=== PATIENT | female | born 1955 | race Hispanic/Latino ===

== ENCOUNTER 2020-04-01 09:18 | Observation (INO) | payer OTHER ==
--- NOTE | 2020-04-01 10:29 | CT ---
CT BRAIN WITHOUT CONTRAST: Date: 04/01/2020 HISTORY: Headache. Slurred speech. COMPARISON: 07/21/2012. FINDINGS: No evidence of acute infarct, hemorrhage, midline shift, or abnormal extra-axial fluid collections ar e seen. The ventricular size is normal and the basilar cisterns are patent. The bony calvarium is int act. The visualized paranasal sinuses and mastoid air cells are well aerated. IMPRESSION: No CT evidence of acute intracranial process. POS: SANDR[facility]
[2020-04-01 10:33] LABS: Hemoglobin 11.9 g/dL (12.0-16.0); Mean Corpuscular HGB CONC 34.5 g/dL (32.0-36.0); Mean Corpuscular Hemoglobin 30.3 pg (27.0-31.0); Mean Corpuscular Volume 87.9 fL (78.0-98.0); Platelet Count 241 thou/uL (130-400); RBC Distribution Width 12.9 % (11.5-14.5); Red Blood Cell (RBC) Count 3.93 mill/uL (4.20-5.40); White Blood Cell (WBC) Count 7.5 thou/uL (4.8-10.8)
[2020-04-01 10:56] LABS: ALT (SGPT) 40 U/L (8-55); AST (SGOT) 52 U/L (5-34); Albumin 3.8 g/dL (3.4-4.8); Alkaline Phosphatase 135 U/L (40-110); Anion Gap 12 mmol/L (10-20); BUN (Urea Nitrogen) 18 mg/dL (9.8-20.1); Bilirubin, Total 0.7 mg/dL (0.2-1.2); Calc. Creatinine Clearance 0 mL/min (70-130); Calcium 8.8 mg/dL (7.8-10.44); Carbon Dioxide 25 mmol/L (23-31); Chloride 97 mmol/L (98-107); Estimated GFR-MDRD 44; Globulin 3.3 g/dL (2.4-3.5); Glucose 96 mg/dL (80-115); Protein, Total 7.1 g/dL (6.0-8.3); Sodium 131 mmol/L (136-145)
[2020-04-01 11:01] LABS: Band 5 % (5-11); Eosinophils 3 % (0-10); Lymphocytes 33 % (21-51); MDiff Complete? YES; Monocytes 16 % (0-10); Neutrophil 43 % (42-75); Platelet Morphology Comment Appears Adequate; Polychromasia SLIGHT = 2-3 cells (100X) (0-2/hpf)
[2020-04-01 11:22] LABS: Bacteria/HPF 4+ HPF (None Seen); Bilirubin Negative (Negative); Blood, Urine 2+ (Negative); Clarity Turbid (Clear); Glucose, Urine (Dipstick) Normal (Negative); Ketone, Urine Negative (Negative); Leukocyte 500 Leu/uL (Negative); Nitrite 2+ (Negative); Protein, Urine (Dipstick) 20 mg/dL (Neg-Trace); Specific Gravity, Urine 1.012 (1.002-1.036); Squamous Epithelial 0-3 HPF (0-3); WBC/HPF Greater than 50 HPF (0-3); pH, Urine 5.5 (5.0-9.0)
[2020-04-01] MEDS ORDERED: Potassium Chloride 20 MEQ TAB ONE (12:05)
[2020-04-01] MEDS ORDERED: cefTRIAXone\\ROCEPHIN 1 GM VIAL ONE (12:05)
[2020-04-01] MEDS ORDERED: Ondansetron PF 4 MG/2 ML Vial IVP PRN (14:49)
[2020-04-01] MEDS ORDERED: HYDROcodone/Acetaminophen 5/325 mg Tablet PO PRN ×2 (14:49)
[2020-04-01] MEDS ORDERED: Ondansetron ODT 4 MG TAB PO PRN (14:49)
[2020-04-01] MEDS ORDERED: Acetaminophen 325 MG TAB PO PRN (14:49)
--- NOTE | 2020-04-01 15:25 | MRI ---
MRI BRAIN NONCONTRAST: DATE: 04/01/2020 HISTORY: 64 year old female with TIA: Dysarthria FINDINGS: There is no obstructive hydrocephalus. There is no midline shift or any other evidence of mass effect . There is no extra-axial fluid collection. There are mild chronic ischemic white matter changes due to microvascular atherosclerosis. There is otherwise no major intra-axial signal abnormality, rec ent hemorrhage, or restricted diffusion. IMPRESSION: 1) mild chronic ischemic white matter changes. 2) otherwise negative
--- NOTE | 2020-04-01 15:54 | HP ---
PRIMARY CARE PHYSICIAN: Dr. Olivo with [facility]. CHIEF COMPLAINT: Headache. HISTORY OF PRESENT ILLNESS: The patient is a 64-year-old female with past medical history significant for hyperlipidemia, hypertension, and depression. She presents to the ER today for a headache that started 3 days ago. She states that this headache did not feel like her normal migraine that she would get 10 years ago. It felt more like a band of tightness around her head. It began about 6:00 a.m. that morning that started in her occipital area and travelled around the left frontal region. She did proceed to go to work that day, and during her work that day, she started to slur her words, have blurry vision, and began to walk sideways. She was able to finish her shift, but that night when she got home, she did fall 3 times. She states she did not take anything for pain relief, although the ER has a note stating that she attempted [place] and tramadol. She states that around 10:00 p.m. that evening, it went away on its own. She does still say she has a little bit of blurry vision, although it was much improved since Wednesday and also she states that she does feel like her speech is still slurred, although that also was much improved since Wednesday. She was feeling nauseated on that day, but denied any vomiting. She denied any chest pain, shortness of breath, fever, or sick contacts. The patient also claims that she has been very sleepy and falling asleep even mid sentence. For the past 6 months, she states that she is having a hard time falling asleep at night , but then is extremely sleepy throughout the day. She denies any snoring or gasping awake at night. The patient states she has not had any sick contacts, although she did attend a [place] yesterday, where multiple family members were there that had previously tested positive for COVID-19. She states that they all were wearing masks and attempted to practice social distancing. Today, in the ER, they completed lab work, urinalysis, brain CT, and EKG. PAST MEDICAL HISTORY: Hypertension, hyperlipidemia, and depression. PAST SURGICAL HISTORY: Hysterectomy, appendectomy, shoulder and neck surgery, and cholecystectomy. ALLERGIES: PENICILLIN CAUSES HIVES. MEDICATIONS: 1. Citalopram 40 mg once daily. 2. Lisinopril 40 mg daily. 3. Hydrocodone 5 mg/325 mg as needed. SOCIAL HISTORY: The patient lives at home with her . She is a 3- cigarette per day smoker. She denies any alcohol or any drug use. FAMILY HISTORY: Her father from an [place] at age 76. Her brother has had 2 CABGs. REVIEW OF SYSTEMS: All other review of systems negative unless noted in the HPI. PHYSICAL EXAMINATION: VITAL SIGNS: Blood pressure 119/67, pulse 72, respiratory rate 16, temperature 98.5 orally, O2 saturation 99% on room air. CONSTITUTIONAL: Appears in no acute distress. HEENT: Head, atraumatic and normocephalic. Eyes, PERRLA. Extraocular muscles intact. No nystagmus. NECK: Supple. Trachea midline. No lymphadenopathy. RESPIRATORY: Symmetrical chest rise. Clear to auscultation bilaterally. No rhonchi, no wheezes, no rales. CARDIOVASCULAR: Regular rate and rhythm. No rubs, no murmurs, no gallops. ABDOMEN: Bowel sounds normal. No distention. No guarding. No rigidity. EXTREMITIES: No edema. No cyanosis. Posterior tibial and pulses intact. NEUROLOGIC: Cranial nerves 2 through 12 intact. No focal motor deficits. No focal sensory deficits. Cerebellar exam intact. Gait not assessed at this time for the patient's safety. PSYCHIATRIC: Normal affect. Normal behavior. LABORATORY DATA AND IMAGING: Brain CT shows no CT evidence of acute intracranial process. White blood cell 7.5, hemoglobin 11.9, hematocrit 34.5. Sodium 131, potassium 3.0, chloride 97, creatinine 1.24, GFR 44, glucose 96, AST 52, alkaline phosphatase 135. Troponin negative. Urine with 2+ blood and 2+ nitrites, leukocyte esterase 4+ urine bacteria. IMPRESSION AND PLAN: Headache, rule out transient ischemic attack versus complex migraine. The patient states that she has not had a migraine in over 10 years. However, she did claim that she went and saw neurology 6 weeks ago at [facility] for her headaches. We are trying to obtain those medical records from them. Her only complaint at this time is the blurry vision and that she feels like she is walking sideways. ER nurses noted when she walked to the bathroom, she did so without difficulty earlier. The patient also has hypokalemia and this has been replaced at this time. We will continue to monitor and redraw labs in the morning. Patient also presented with an acute kidney injury so we will continue to run IV fluids and recheck her labs in the morning. We will continue IV antibiotics that were started in the ER for her urinary tract infection. The patient does have a history of hypertension. However, since she has been in the ER today, she has been hypotensive. We will continue to monitor her vital signs and hold her blood pressure medicine at this time. The patient wishes to be a full code. Her surrogate decision maker is her daughter, Jeannie Chauhan. The patient has been discussed with Dr. Buck. Job ID: [id number] [id number]
[2020-04-01 16:43] LABS: Troponin I Less than 0.010 ng/mL (< 0.028)
--- NOTE | 2020-04-01 17:30 | CON ---
NEUROLOGY CONSULTATION DATE OF CONSULTATION: 04/01/2020 REASON FOR CONSULTATION: Headache. HISTORY OF PRESENT ILLNESS: Ms. Akiko Chamorro is a 64-year-old female with medical history significant hypertension, hyperlipidemia, and depression, presented with 3-day history of headache. According to the patient, she did not feel not like her normal migraine. It started with a bandlike tightness around her head around 6 a.m. this morning in the occipital area of the neck, then it spread into her left frontal region. She did go to work on Wednesday and worked all day, but she noted started having she did not take any medicine for the pain relief . The headache resolved on it own at 10:00 p.m., but she still had blurred vision. Apparently, the headache started again and she decided to come to the emergency room for further evaluation. She denies any focal weakness or focal paresthesias. She does report nausea, but no vomiting, loss of vision, or loss of consciousness associated with this headache. She did attend the [facility] yesterday with multiple family members who were positive for COVID-19, but they were wearing mask and attempted social distances. In the emergency room, a head CT was done, which was negative for acute intracranial pathology. MRI, urinalysis, and EKG was also unremarkable. REVIEW OF SYSTEMS: All 10 systems were reviewed and were negative except the pertinent positive and negative mentioned in the HPI. PAST MEDICAL HISTORY: 1. Hypertension. 2. Hyperlipidemia. 3. Depression. PAST SURGICAL HISTORY: 1. Hysterectomy. 2. Appendectomy. 3. Shoulder surgery. 4. Neck surgery. 5. Cholecystectomy. ALLERGIES: PENICILLIN CAUSES HIVES. MEDICATIONS: 1. Citalopram 40 mg once daily. 2. Lisinopril 40 mg daily. 3. Hydrocodone 5 mg/325 mg as needed. SOCIAL HISTORY: The patient lives at home with her . She denies alcohol or illegal drug use. She is a 3 cigarettes per day smoker. FAMILY HISTORY: Significant for coronary artery disease and CABG in two of her brothers. PHYSICAL EXAMINATION: VITAL SIGNS: Blood pressure 119/70, pulse 80, respiratory rate 18, and temperature 98.5. CVS: Regular rate and rhythm. CHEST: Clear. ABDOMEN: Soft. NECK: Supple. NEUROLOGIC: Mental status: The patient is alert and oriented to person, place , and time. Cranial nerves 2 through 12 intact. Motor: Muscle tone and bulk are normal. Strength 5/5 bilaterally. Sensory intact. Cerebellar, finger-nose testing intact. Gait not assessed due to the patient's safety reasons. DATA REVIEW: I reviewed the CT scan, which did not reveal any acute intracranial pathology. Urinalysis was positive for UTI. ASSESSMENT AND PLAN: Ms. Akiko Chamorro is consulted for headache, which lasted for 3 days with associated with neurological symptoms like blurred vision, incoordination, and slurred speech. Per patient, headache is currently better after receiving IV antibiotics for urinary tract infection. The MRI of the brain reviewed, which was negative for acute intracranial pathology . This is most likely complicated migraine in the setting of urinary tract infection. Continue on IV antibiotics and medical management per primary team. Continue pain management. Consider gabapentin 100 mg tid for headache control. The patient should follow up with outpatient neurologist for long-term headache management. Plan discussed with the patient and the primary provider, Ramila HUITRON . Thank you for the consult. Job ID: [id number]
[2020-04-01 20:08] LABS: Troponin I Less than 0.010 ng/mL (< 0.028)
[2020-04-01] MEDS: Sodium Chloride 0.9% 1,000 ML IV SCH (20:34)
[2020-04-01] MEDS: Famotidine 20 MG TAB PO SCH (20:34)
[2020-04-01] MEDS ORDERED: Atorvastatin Calcium 40 MG TAB PO SCH (21:00)
[2020-04-01 23:42] VITALS: BMI 20.1
[2020-04-02] MEDS: Sodium Chloride 0.9% 1,000 ML IV SCH ×2 (03:00→07:00)
[2020-04-02 05:02] LABS: #Basophils 0.1 thou/uL (0.0-0.2); #Eosinphils 0.2 thou/uL (0.0-0.7); #Lymphocytes 2.1 thou/uL (1.20-3.40); #Monocytes 0.8 thou/uL (0.11-0.59); #Neutrophils 3.9 thou/uL (1.40-6.50); %Basophils 0.8 % (0.0-1.0); %Eosinophils 2.3 % (0.0-10.0); %Lymphocytes 30.1 % (21.0-51.0); %Monocytes 10.9 % (0.0-10.0); %Neutrophils 55.9 % (42.0-75.0); Hemoglobin 11.2 g/dL (12.0-16.0); Mean Corpuscular HGB CONC 33.5 g/dL (32.0-36.0); Mean Corpuscular Hemoglobin 29.6 pg (27.0-31.0); Mean Corpuscular Volume 88.2 fL (78.0-98.0); Mean Platelet Volume 7.3 fL (7.4-10.4); Platelet Count 254 thou/uL (130-400); RBC Distribution Width 13.2 % (11.5-14.5); Red Blood Cell (RBC) Count 3.79 mill/uL (4.20-5.40); White Blood Cell (WBC) Count 6.9 thou/uL (4.8-10.8)
[2020-04-02 05:22] LABS: Anion Gap 15 mmol/L (10-20); BUN (Urea Nitrogen) 11 mg/dL (9.8-20.1); Calc. Creatinine Clearance 82 mL/min (70-130); Calcium 8.6 mg/dL (7.8-10.44); Carbon Dioxide 20 mmol/L (23-31); Cardiac Risk 5.7 (Less than 4.5); Chloride 111 mmol/L (98-107); Cholesterol 91 mg/dl (< 200 Desired); Estimated GFR-MDRD Greater than 90; Glucose 97 mg/dL (80-115); HDL Cholesterol 16 mg/dL (>60 Neg Risk); LDL Cholesterol, Calculated 55 mg/dL; Potassium 3.7 mmol/L (3.5-5.1); Sodium 142 mmol/L (136-145); Triglycerides 99 mg/dL (Less than 150)
[2020-04-02] MEDS ORDERED: Ibuprofen 600 MG TAB PO PRN (07:59)
[2020-04-02] MEDS ORDERED: Aspirin 81 mg Enteric Coated Tablet PO SCH (09:00)
[2020-04-02] MEDS ORDERED: Enoxaparin Sodium 40 MG/0.4 ML SYRINGE SC SCH (09:00)
[2020-04-02] MEDS: Famotidine 20 MG TAB PO SCH (09:01)
[2020-04-02] MEDS ORDERED: cefTRIAXone\\ROCEPHIN 1 GM in Sodium Chloride 0.9% 100 ML IVPB SCH ×2 (10:00→12:00)
[2020-04-02 11:25] VITALS: BP 119/57; TEMP 97.5
--- NOTE | 2020-04-02 13:47 | DIS ---
DATE OF ADMISSION: 04/01/2020 DATE OF DISCHARGE: 04/02/2020 PRIMARY CARE PROVIDER: She states she has one, but no name. DISCHARGE DISPOSITION: Discharged home. FINAL DIAGNOSES: 1. Headache, resolved. 2. Hypokalemia, resolved. 3. Urinary tract infection. 4. Hypertension. 5. Dyslipidemia. DISCHARGE MEDICINES: Her home medicines plus, 1. Omnicef 300 mg p.o. b.i.d. x7 days. 2. The patient takes Lipitor 40 mg a day. 3. Tramadol 50 mg b.i.d. p.r.n. 4. Escitalopram 20 mg a day. 5. Remeron 30 mg a day. 6. Oxybutynin 10 mg a day. 7. Lisinopril 10 mg a day. 8. Gabapentin 100 mg three times a day. ALLERGIES: PENICILLINS. DIET: Heart healthy. CODE STATUS: Full. PENDING AT TIME OF DISCHARGE: Urine culture and sensitivity reports. HOSPITAL COURSE: The patient admitted with headache. Initial workup including brain CT was unrevealing. Consultation by Dr. Demetria Rojas, Neurology. The patient's headache was associated with some neurological symptoms. Diagnosis of complicated migraine was made with presence of urinary tract infection. She had been put on ceftriaxone. She had no fever, no chills, no elevated white count. She is currently feeling well. Neurological exam is normal. She is being discharged on Omnicef 300 mg p.o. b.i.d. for 7 days. She needs followup with PCP. Dr. Rojas has also recommended follow up with neurologist for long-term headache management. PERTINENT LABORATORY: At discharge, basic metabolic profile is normal. Cardiac enzymes were done which were unremarkable. Cholesterol is 91, LDL is 55. CBC unremarkable. As I said before, culture and sensitivity of urine pending, will be followed up. Job ID: [id number]
[2020-04-02 14:20] LABS: SARS-CoV-2 MS2 Positive; SARS-CoV-2 N Gene Negative; SARS-CoV-2 S Gene Negative; SARS-CoV-2 by NAA Not Detected (NotDetected); SARS-CoV-2 orf1ab Negative
== END 2020-04-02 12:27 | disposition home or self-care (01) ==
LOC: ERS 09:18 → ERHOLD 12:11 → 2SE 19:19
PROVIDERS: ADMIT Internal Medicine; ATTEND Internal Medicine
DX: G43.109 Migraine with aura, not intractable, without status migrainosus (principal); E87.6 Hypokalemia; N39.0 Urinary tract infection, site not specified; I10 Essential (primary) hypertension; E78.5 Hyperlipidemia, unspecified; H53.8 Other visual disturbances; N17.9 Acute kidney failure, unspecified; F32.9 Major depressive disorder, single episode, unspecified; F41.9 Anxiety disorder, unspecified; F17.210 Nicotine dependence, cigarettes, uncomplicated; Z79.899 Other long term (current) drug therapy; Z88.0 Allergy status to penicillin
CPT/HCPCS: 36415; 70450; 70551; 80048; 80053; 80061; 81003; 81015; 84484; 85025; 87077; 87086; 87186; 87635; 90471; 90732; 93005; 93306; 96361; 96365; 96366; G0009; G0378; J0696; J1650; J3490; U0003

== ENCOUNTER 2021-05-20 08:40 | Inpatient (IN) | payer BC, OTHER ==
[2021-05-20 09:51] LABS: #Eosinphils 0.1 thou/uL (0.0-0.7); #Lymphocytes 2.8 thou/uL (1.20-3.40); #Monocytes 0.7 thou/uL (0.11-0.59); #Neutrophils 8.2 thou/uL (1.40-6.50); %Basophils 0.3 % (0.0-1.0); %Eosinophils 1.2 % (0.0-10.0); %Lymphocytes 23.4 % (21.0-51.0); %Monocytes 5.8 % (0.0-10.0); %Neutrophils 69.3 % (42.0-75.0); Hemoglobin 14.2 g/dL (12.0-16.0); Mean Corpuscular HGB CONC 33.8 g/dL (32.0-36.0); Mean Corpuscular Hemoglobin 28.3 pg (27.0-31.0); Mean Corpuscular Volume 83.7 fL (78.0-98.0); Mean Platelet Volume 6.5 fL (7.4-10.4); Platelet Count 284 thou/uL (130-400); RBC Distribution Width 12.9 % (11.5-14.5); Red Blood Cell (RBC) Count 5.03 mill/uL (4.20-5.40); White Blood Cell (WBC) Count 11.9 thou/uL (4.8-10.8)
[2021-05-20 10:11] LABS: ALT (SGPT) Less than 7 U/L (8-55); AST (SGOT) 13 U/L (5-34); Albumin 3.7 g/dL (3.4-4.8); Alkaline Phosphatase 233 U/L (40-110); Anion Gap 16 mmol/L (10-20); BUN (Urea Nitrogen) 9 mg/dL (9.8-20.1); Bilirubin, Total 0.6 mg/dL (0.2-1.2); Calc. Creatinine Clearance 0 mL/min (70-130); Calcium 9.6 mg/dL (7.8-10.44); Carbon Dioxide 25 mmol/L (23-31); Chloride 99 mmol/L (98-107); Globulin 3.4 g/dL (2.4-3.5); Glucose 117 mg/dL (80-115); Potassium 4.1 mmol/L (3.5-5.1); Protein, Total 7.1 g/dL (5.8-8.1); Sodium 136 mmol/L (136-145)
[2021-05-20 10:33] LABS: CKMB 0.4 ng/mL (0-6.6)
[2021-05-20] MEDS ORDERED: Iopamidol-370 76% 500 ML 1 ML ONE (11:45)
[2021-05-20] MEDS ORDERED: Acetaminophen 500 MG TAB ONE (12:06)
[2021-05-20] MEDS ORDERED: Ondansetron ODT 4 MG TAB ONE (12:06)
[2021-05-20] MEDS ORDERED: Ibuprofen 800 MG TAB ONE (12:06)
[2021-05-20] MEDS ORDERED: Dexamethasone 10 MG/ML VIAL ONE (12:06)
[2021-05-20] MEDS ORDERED: Albuterol 200 PUFF (6.7GM INHALER) ONE (12:11)
[2021-05-20 16:23] LABS: CKMB 0.9 ng/mL (0-6.6)
[2021-05-20] MEDS ORDERED: Bisacodyl 5 MG TAB PO PRN (19:14)
[2021-05-20] MEDS: Nicotine 14 MG PATCH TD SCH (21:41)
[2021-05-20 21:50] LABS: SARS-CoV-2 PCR by NAA Not Detected (NotDetected)
[2021-05-20 22:23] VITALS: BMI 21.4
[2021-05-20] MEDS: HYDROcodone/Acetaminophen 10/325 mg Tablet PO PRN (23:59)
[2021-05-21] MEDS: Ondansetron PF 4 MG/2 ML Vial IVP PRN (05:40)
[2021-05-21 06:40] LABS: #Lymphocytes 2.7 thou/uL (1.20-3.40); #Monocytes 1.1 thou/uL (0.11-0.59); #Neutrophils 9.8 thou/uL (1.40-6.50); %Basophils 0.2 % (0.0-1.0); %Eosinophils 0.3 % (0.0-10.0); %Lymphocytes 19.7 % (21.0-51.0); %Neutrophils 71.8 % (42.0-75.0); Hemoglobin 12.9 g/dL (12.0-16.0); Mean Corpuscular HGB CONC 31.8 g/dL (32.0-36.0); Mean Corpuscular Hemoglobin 27.2 pg (27.0-31.0); Mean Corpuscular Volume 85.3 fL (78.0-98.0); Mean Platelet Volume 6.7 fL (7.4-10.4); Platelet Count 307 thou/uL (130-400); RBC Distribution Width 12.8 % (11.5-14.5); Red Blood Cell (RBC) Count 4.74 mill/uL (4.20-5.40); White Blood Cell (WBC) Count 13.7 thou/uL (4.8-10.8)
[2021-05-21 07:02] LABS: Anion Gap 13 mmol/L (10-20); BUN (Urea Nitrogen) 18 mg/dL (9.8-20.1); Calc. Creatinine Clearance 62 mL/min (70-130); Calcium 9.3 mg/dL (7.8-10.44); Carbon Dioxide 25 mmol/L (23-31); Chloride 102 mmol/L (98-107); Glucose 118 mg/dL (80-115); Potassium 4.3 mmol/L (3.5-5.1); Sodium 136 mmol/L (136-145)
[2021-05-21] MEDS: Gabapentin 100 MG CAP PO SCH ×3 (08:38→20:01)
[2021-05-21] MEDS: Enoxaparin Sodium 40 MG/0.4 ML SYRINGE SC SCH (08:38)
[2021-05-21] MEDS: HYDROcodone/Acetaminophen 10/325 mg Tablet PO PRN (14:43)
[2021-05-21] MEDS ORDERED: traMADol HCl 50 MG TAB PO PRN (15:18)
[2021-05-21] MEDS ORDERED: SUMAtriptan Succinate 50 MG TAB PO PRN (15:18)
[2021-05-21] MEDS: Atorvastatin Calcium 40 MG TAB PO SCH (20:02)
[2021-05-21] MEDS: Acetaminophen 325 MG TAB PO PRN (20:02)
[2021-05-21] MEDS: Nicotine 14 MG PATCH TD SCH (21:11)
[2021-05-22] MEDS: Enoxaparin Sodium 40 MG/0.4 ML SYRINGE SC SCH (09:01)
[2021-05-22] MEDS: Lisinopril 10 MG TAB PO SCH (09:02)
[2021-05-22] MEDS: Mirtazapine 30 MG TAB PO SCH (09:02)
[2021-05-22] MEDS: Gabapentin 100 MG CAP PO SCH ×3 (09:02→19:45)
[2021-05-22] MEDS ORDERED: Lorazepam 2 MG/ML VIAL SLOW IVP SCH (12:30)
[2021-05-22 15:33] LABS: #Basophils 0.1 thou/uL (0.0-0.2); #Eosinphils 0.1 thou/uL (0.0-0.7); #Monocytes 0.9 thou/uL (0.11-0.59); %Basophils 0.4 % (0.0-1.0); %Eosinophils 0.5 % (0.0-10.0); %Lymphocytes 18.7 % (21.0-51.0); %Monocytes 5.4 % (0.0-10.0); %Neutrophils 75.1 % (42.0-75.0); Hemoglobin 13.9 g/dL (12.0-16.0); Mean Corpuscular HGB CONC 33.1 g/dL (32.0-36.0); Mean Corpuscular Hemoglobin 28.1 pg (27.0-31.0); Mean Corpuscular Volume 84.8 fL (78.0-98.0); Mean Platelet Volume 6.6 fL (7.4-10.4); Platelet Count 293 thou/uL (130-400); Red Blood Cell (RBC) Count 4.93 mill/uL (4.20-5.40)
[2021-05-22] MEDS: Acetaminophen 325 MG TAB PO PRN (15:44)
[2021-05-22 15:54] LABS: ALT (SGPT) 8 U/L (8-55); AST (SGOT) 25 U/L (5-34); Albumin 3.6 g/dL (3.4-4.8); Alkaline Phosphatase 225 U/L (40-110); Anion Gap 17 mmol/L (10-20); BUN (Urea Nitrogen) 17 mg/dL (9.8-20.1); Bilirubin, Total 0.3 mg/dL (0.2-1.2); Calc. Creatinine Clearance 63 mL/min (70-130); Calcium 9.2 mg/dL (7.8-10.44); Carbon Dioxide 22 mmol/L (23-31); Chloride 105 mmol/L (98-107); Globulin 3.3 g/dL (2.4-3.5); Glucose 168 mg/dL (80-115); Potassium 3.7 mmol/L (3.5-5.1); Protein, Total 6.9 g/dL (5.8-8.1); Sodium 140 mmol/L (136-145)
[2021-05-22] MEDS: cefTRIAXone\\ROCEPHIN 1 GM in Sodium Chloride 0.9% 100 ML IVPB SCH (16:59)
[2021-05-22 18:17] LABS: Hemoglobin A1c 5.7 % (4.0-6.0)
[2021-05-22] MEDS: Sodium Chloride 0.9% 1,000 ML IV SCH (18:45)
[2021-05-22] MEDS: Nicotine 14 MG PATCH TD SCH (19:45)
[2021-05-22] MEDS: Atorvastatin Calcium 40 MG TAB PO SCH (19:46)
[2021-05-22] MEDS: SODIUM CHLORIDE 0.9% IVPB SCH (20:01)
[2021-05-22] MEDS: ACYCLOVIR SODIUM IVPB SCH (20:01)
[2021-05-22 22:59] LABS: SARS-CoV-2 NAA Rapid Test Not Detected (NotDetected)
[2021-05-23] MEDS: ACYCLOVIR SODIUM IVPB SCH ×2 (03:37→11:10)
[2021-05-23] MEDS: SODIUM CHLORIDE 0.9% IVPB SCH ×2 (03:37→11:10)
[2021-05-23 05:22] LABS: #Basophils 0.1 thou/uL (0.0-0.2); #Eosinphils 0.1 thou/uL (0.0-0.7); #Monocytes 1.2 thou/uL (0.11-0.59); %Basophils 0.5 % (0.0-1.0); %Eosinophils 0.8 % (0.0-10.0); %Monocytes 8.4 % (0.0-10.0); %Neutrophils 69.3 % (42.0-75.0); Hemoglobin 13.2 g/dL (12.0-16.0); Mean Corpuscular HGB CONC 33.5 g/dL (32.0-36.0); Mean Corpuscular Hemoglobin 28.3 pg (27.0-31.0); Mean Corpuscular Volume 84.5 fL (78.0-98.0); Mean Platelet Volume 6.4 fL (7.4-10.4); Platelet Count 300 thou/uL (130-400); RBC Distribution Width 12.9 % (11.5-14.5); Red Blood Cell (RBC) Count 4.66 mill/uL (4.20-5.40); White Blood Cell (WBC) Count 14.5 thou/uL (4.8-10.8)
[2021-05-23 05:42] LABS: ALT (SGPT) 9 U/L (8-55); AST (SGOT) 46 U/L (5-34); Albumin 3.5 g/dL (3.4-4.8); Alkaline Phosphatase 257 U/L (40-110); Anion Gap 15 mmol/L (10-20); BUN (Urea Nitrogen) 12 mg/dL (9.8-20.1); Bilirubin, Total 0.5 mg/dL (0.2-1.2); Calc. Creatinine Clearance 70 mL/min (70-130); Calcium 8.9 mg/dL (7.8-10.44); Carbon Dioxide 23 mmol/L (23-31); Chloride 102 mmol/L (98-107); Globulin 3.3 g/dL (2.4-3.5); Glucose 106 mg/dL (80-115); Protein, Total 6.8 g/dL (5.8-8.1); Sodium 136 mmol/L (136-145)
[2021-05-23] MEDS: Acetaminophen 325 MG TAB PO PRN ×2 (09:08→16:31)
[2021-05-23] MEDS: Lisinopril 10 MG TAB PO SCH (09:09)
[2021-05-23] MEDS: Enoxaparin Sodium 40 MG/0.4 ML SYRINGE SC SCH (09:10)
[2021-05-23] MEDS: Gabapentin 100 MG CAP PO SCH ×3 (09:10→21:00)
[2021-05-23] MEDS: Mirtazapine 30 MG TAB PO SCH (09:10)
[2021-05-23] MEDS: Sodium Chloride 0.9% 1,000 ML IV SCH (09:11)
[2021-05-23] MEDS ORDERED: Iopamidol-370 76% 500 ML 1 ML ONE (10:58)
[2021-05-23 12:59] LABS: Cardiac Risk 3.5 (Less than 4.5)
[2021-05-23] MEDS: cefTRIAXone\\ROCEPHIN 1 GM in Sodium Chloride 0.9% 100 ML IVPB SCH (16:27)
[2021-05-23 19:41] LABS: SARS-CoV-2 IgG Ab Non-Reactive (NonReactive)
[2021-05-23 20:05] LABS: SARS-CoV-2 IgG Index 0.12 S/CO (< 1.40)
[2021-05-23] MEDS: Atorvastatin Calcium 40 MG TAB PO SCH (21:00)
[2021-05-23] MEDS: Nicotine 14 MG PATCH TD SCH (21:09)
[2021-05-24 09:01] LABS: #Basophils 0.1 thou/uL (0.0-0.2); #Eosinphils 0.1 thou/uL (0.0-0.7); #Lymphocytes 2.6 thou/uL (1.20-3.40); #Monocytes 1.1 thou/uL (0.11-0.59); #Neutrophils 10.5 thou/uL (1.40-6.50); %Basophils 0.6 % (0.0-1.0); %Eosinophils 0.3 % (0.0-10.0); %Lymphocytes 18.4 % (21.0-51.0); %Monocytes 7.5 % (0.0-10.0); %Neutrophils 73.2 % (42.0-75.0); Hemoglobin 13.9 g/dL (12.0-16.0); Mean Corpuscular HGB CONC 32.8 g/dL (32.0-36.0); Mean Corpuscular Hemoglobin 27.8 pg (27.0-31.0); Mean Corpuscular Volume 84.7 fL (78.0-98.0); Mean Platelet Volume 6.4 fL (7.4-10.4); Platelet Count 287 thou/uL (130-400); Red Blood Cell (RBC) Count 5.01 mill/uL (4.20-5.40); White Blood Cell (WBC) Count 14.3 thou/uL (4.8-10.8)
[2021-05-24 09:18] LABS: CRP (Inflammatory) 28.33 mg/dL (= or < 0.5); Phosphorus 3.1 mg/dL (2.3-4.7)
[2021-05-24 09:22] LABS: ALT (SGPT) 10 U/L (8-55); AST (SGOT) 40 U/L (5-34); Albumin 3.5 g/dL (3.4-4.8); Alkaline Phosphatase 272 U/L (40-110); Anion Gap 17 mmol/L (10-20); BUN (Urea Nitrogen) 13 mg/dL (9.8-20.1); Bilirubin, Total 0.7 mg/dL (0.2-1.2); Calc. Creatinine Clearance 72 mL/min (70-130); Calcium 9.1 mg/dL (7.8-10.44); Carbon Dioxide 22 mmol/L (23-31); Chloride 104 mmol/L (98-107); Globulin 3.5 g/dL (2.4-3.5); Glucose 116 mg/dL (80-115); Magnesium 1.8 mg/dL (1.6-2.6); Potassium 3.7 mmol/L (3.5-5.1); Sodium 139 mmol/L (136-145)
[2021-05-24] MEDS ORDERED: Magnesium 2 GM/50 ML 2 GM in Premix Bag 1 BAG IVPB SCH (10:00)
[2021-05-24] MEDS ORDERED: Electrolyte Replacement Protocol 1 EACH FS SCH (10:00)
[2021-05-24] MEDS ORDERED: Multivit, Therapeutic 1 TAB PO SCH (10:30)
[2021-05-24] MEDS ORDERED: Folic Acid 1 MG TAB PO SCH (10:30)
[2021-05-24] MEDS: Mirtazapine 30 MG TAB PO SCH (10:47)
[2021-05-24] MEDS: Gabapentin 100 MG CAP PO SCH ×3 (10:47→20:54)
[2021-05-24] MEDS: Lisinopril 10 MG TAB PO SCH (10:47)
[2021-05-24] MEDS: Aspirin Chewable 81 MG TAB PO SCH (10:47)
[2021-05-24] MEDS: Sodium Chloride 0.9% 1,000 ML IV SCH ×3 (10:48→22:09)
[2021-05-24] MEDS: Enoxaparin Sodium 40 MG/0.4 ML SYRINGE SC SCH (10:49)
[2021-05-24] MEDS: HYDROcodone/Acetaminophen 5/325 mg Tablet PO PRN (15:34)
[2021-05-24] MEDS: cefTRIAXone\\ROCEPHIN 1 GM in Sodium Chloride 0.9% 100 ML IVPB SCH (15:34)
[2021-05-24] MEDS: Nicotine 14 MG PATCH TD SCH (20:54)
[2021-05-24] MEDS: Atorvastatin Calcium 40 MG TAB PO SCH (20:54)
[2021-05-24] MEDS: Folic Acid 1 MG TAB PO SCH (20:54)
[2021-05-25 05:52] LABS: #Eosinphils 0.2 thou/uL (0.0-0.7); #Lymphocytes 3.3 thou/uL (1.20-3.40); #Monocytes 0.8 thou/uL (0.11-0.59); #Neutrophils 9.6 thou/uL (1.40-6.50); %Basophils 0.2 % (0.0-1.0); %Eosinophils 1.1 % (0.0-10.0); %Lymphocytes 23.5 % (21.0-51.0); %Monocytes 5.8 % (0.0-10.0); %Neutrophils 69.4 % (42.0-75.0); Hemoglobin 12.9 g/dL (12.0-16.0); Mean Corpuscular HGB CONC 32.5 g/dL (32.0-36.0); Mean Corpuscular Hemoglobin 27.6 pg (27.0-31.0); Mean Corpuscular Volume 84.9 fL (78.0-98.0); Mean Platelet Volume 6.6 fL (7.4-10.4); Platelet Count 316 thou/uL (130-400); RBC Distribution Width 13.1 % (11.5-14.5); Red Blood Cell (RBC) Count 4.67 mill/uL (4.20-5.40); White Blood Cell (WBC) Count 13.9 thou/uL (4.8-10.8)
[2021-05-25 06:11] LABS: Anion Gap 15 mmol/L (10-20); BUN (Urea Nitrogen) 12 mg/dL (9.8-20.1); Calc. Creatinine Clearance 74 mL/min (70-130); Calcium 8.7 mg/dL (7.8-10.44); Carbon Dioxide 23 mmol/L (23-31); Chloride 102 mmol/L (98-107); Glucose 109 mg/dL (80-115); Potassium 3.6 mmol/L (3.5-5.1); Sodium 136 mmol/L (136-145)
[2021-05-25] MEDS: Enoxaparin Sodium 40 MG/0.4 ML SYRINGE SC SCH ×2 (10:49→11:28)
[2021-05-25] MEDS: Aspirin Chewable 81 MG TAB PO SCH (10:50)
[2021-05-25] MEDS: Mirtazapine 30 MG TAB PO SCH (10:50)
[2021-05-25] MEDS: Gabapentin 100 MG CAP PO SCH ×3 (10:50→20:33)
[2021-05-25] MEDS: Saccharomyces boulardii 250 MG CAP PO SCH (10:50)
[2021-05-25] MEDS: Folic Acid 1 MG TAB PO SCH ×2 (10:50→20:33)
[2021-05-25] MEDS: Multivit, Therapeutic 1 TAB PO SCH (10:50)
[2021-05-25] MEDS: Sodium Chloride 0.9% 1,000 ML IV SCH (16:18)
[2021-05-25] MEDS: cefTRIAXone\\ROCEPHIN 1 GM in Sodium Chloride 0.9% 100 ML IVPB SCH (16:19)
[2021-05-25] MEDS: Acetaminophen 325 MG TAB PO PRN (20:33)
[2021-05-25] MEDS: Atorvastatin Calcium 40 MG TAB PO SCH (20:33)
[2021-05-25] MEDS: Nicotine 14 MG PATCH TD SCH (20:34)
[2021-05-25] MEDS: Aztreonam 1 GM in Sodium Chloride 0.9% 100 ML IVPB SCH (20:35)
[2021-05-26] MEDS: Sodium Chloride 0.9% 1,000 ML IV SCH ×2 (02:48→14:05)
[2021-05-26 05:34] LABS: #Basophils 0.1 thou/uL (0.0-0.2); #Eosinphils 0.2 thou/uL (0.0-0.7); #Lymphocytes 2.6 thou/uL (1.20-3.40); #Monocytes 1.1 thou/uL (0.11-0.59); #Neutrophils 9.3 thou/uL (1.40-6.50); %Basophils 0.4 % (0.0-1.0); %Eosinophils 1.6 % (0.0-10.0); %Lymphocytes 19.3 % (21.0-51.0); %Monocytes 8.4 % (0.0-10.0); %Neutrophils 70.3 % (42.0-75.0); Mean Corpuscular HGB CONC 33.4 g/dL (32.0-36.0); Mean Corpuscular Hemoglobin 28.4 pg (27.0-31.0); Mean Corpuscular Volume 85.1 fL (78.0-98.0); Mean Platelet Volume 6.5 fL (7.4-10.4); Platelet Count 300 thou/uL (130-400); RBC Distribution Width 13.1 % (11.5-14.5); Red Blood Cell (RBC) Count 4.23 mill/uL (4.20-5.40); White Blood Cell (WBC) Count 13.3 thou/uL (4.8-10.8)
[2021-05-26 05:55] LABS: Magnesium 1.8 mg/dL (1.6-2.6)
[2021-05-26 05:56] LABS: Anion Gap 13 mmol/L (10-20); BUN (Urea Nitrogen) 11 mg/dL (9.8-20.1); Calc. Creatinine Clearance 78 mL/min (70-130); Calcium 8.6 mg/dL (7.8-10.44); Carbon Dioxide 22 mmol/L (23-31); Chloride 109 mmol/L (98-107); Glucose 112 mg/dL (80-115); Potassium 3.8 mmol/L (3.5-5.1); Sodium 140 mmol/L (136-145)
[2021-05-26] MEDS ORDERED: Magnesium 2 GM/50 ML 2 GM in Premix Bag 1 BAG IVPB SCH (06:30)
[2021-05-26] MEDS: Folic Acid 1 MG TAB PO SCH ×2 (09:05→21:05)
[2021-05-26] MEDS: Multivit, Therapeutic 1 TAB PO SCH (09:05)
[2021-05-26] MEDS: Saccharomyces boulardii 250 MG CAP PO SCH (09:06)
[2021-05-26] MEDS: Gabapentin 100 MG CAP PO SCH ×3 (09:06→21:05)
[2021-05-26] MEDS: Mirtazapine 30 MG TAB PO SCH (09:06)
[2021-05-26] MEDS: Aspirin Chewable 81 MG TAB PO SCH (09:06)
[2021-05-26] MEDS: Enoxaparin Sodium 40 MG/0.4 ML SYRINGE SC SCH (09:07)
[2021-05-26] MEDS: Aztreonam 1 GM in Sodium Chloride 0.9% 100 ML IVPB SCH ×2 (09:08→21:06)
[2021-05-26] MEDS: ALPRAZolam 0.25 MG TAB PO PRN (14:05)
[2021-05-26 18:22] LABS: Bacteria/HPF None Seen HPF (None Seen); Bilirubin Negative (Negative); Blood, Urine Trace (Negative); Clarity Clear (Clear); Glucose, Urine (Dipstick) Normal (Negative); Ketone, Urine Negative (Negative); Leukocyte Negative Leu/uL (Negative); Nitrite Negative (Negative); Protein, Urine (Dipstick) Negative (Neg-Trace); RBC/HPF 0-3 HPF (0-3); Specific Gravity, Urine 1.008 (1.002-1.036); Squamous Epithelial 0-3 HPF (0-3); Urobilinogen Normal mg/dL (Less than 2); WBC/HPF 0-3 HPF (0-3); pH, Urine 6.5 (5.0-9.0)
[2021-05-26] MEDS: Atorvastatin Calcium 40 MG TAB PO SCH (21:05)
[2021-05-26] MEDS: HYDROcodone/Acetaminophen 5/325 mg Tablet PO PRN (21:05)
[2021-05-26] MEDS: Nicotine 14 MG PATCH TD SCH (21:06)
[2021-05-27 05:57] LABS: #Eosinphils 0.3 thou/uL (0.0-0.7); #Lymphocytes 3.2 thou/uL (1.20-3.40); #Monocytes 1.1 thou/uL (0.11-0.59); #Neutrophils 9.5 thou/uL (1.40-6.50); %Basophils 0.1 % (0.0-1.0); %Eosinophils 1.9 % (0.0-10.0); %Lymphocytes 22.4 % (21.0-51.0); %Neutrophils 67.6 % (42.0-75.0); Hemoglobin 12.3 g/dL (12.0-16.0); Mean Corpuscular HGB CONC 31.5 g/dL (32.0-36.0); Mean Corpuscular Hemoglobin 26.9 pg (27.0-31.0); Mean Corpuscular Volume 85.4 fL (78.0-98.0); Mean Platelet Volume 6.4 fL (7.4-10.4); Platelet Count 334 thou/uL (130-400); RBC Distribution Width 13.1 % (11.5-14.5); Red Blood Cell (RBC) Count 4.57 mill/uL (4.20-5.40); White Blood Cell (WBC) Count 14.1 thou/uL (4.8-10.8)
[2021-05-27 06:20] LABS: Anion Gap 14 mmol/L (10-20); BUN (Urea Nitrogen) 9 mg/dL (9.8-20.1); Calc. Creatinine Clearance 85 mL/min (70-130); Calcium 8.6 mg/dL (7.8-10.44); Carbon Dioxide 22 mmol/L (23-31); Chloride 107 mmol/L (98-107); Glucose 104 mg/dL (80-115); Magnesium 1.9 mg/dL (1.6-2.6); Potassium 3.7 mmol/L (3.5-5.1); Sodium 139 mmol/L (136-145)
[2021-05-27] MEDS ORDERED: Magnesium 2 GM/50 ML 2 GM in Premix Bag 1 BAG IVPB SCH (07:00)
[2021-05-27] MEDS: Aspirin Chewable 81 MG TAB PO SCH (08:26)
[2021-05-27] MEDS: Folic Acid 1 MG TAB PO SCH ×2 (08:26→21:14)
[2021-05-27] MEDS: Enoxaparin Sodium 40 MG/0.4 ML SYRINGE SC SCH (08:26)
[2021-05-27] MEDS: Saccharomyces boulardii 250 MG CAP PO SCH (08:27)
[2021-05-27] MEDS: Multivit, Therapeutic 1 TAB PO SCH (08:27)
[2021-05-27] MEDS: Mirtazapine 30 MG TAB PO SCH (08:27)
[2021-05-27] MEDS: Aztreonam 1 GM in Sodium Chloride 0.9% 100 ML IVPB SCH ×2 (09:45→21:14)
[2021-05-27] MEDS: Gabapentin 100 MG CAP PO SCH ×3 (09:47→21:12)
[2021-05-27] MEDS: Sodium Chloride 0.9% 1,000 ML IV SCH ×2 (09:48→21:28)
[2021-05-27] MEDS ORDERED: Potassium Chloride 20 MEQ TAB PO SCH (10:00)
[2021-05-27] MEDS: ALPRAZolam 0.25 MG TAB PO PRN (10:10)
[2021-05-27] MEDS: Nicotine 14 MG PATCH TD SCH (21:14)
[2021-05-27] MEDS: Atorvastatin Calcium 40 MG TAB PO SCH (21:14)
[2021-05-28] MEDS: ALPRAZolam 0.25 MG TAB PO PRN ×2 (03:26→21:33)
[2021-05-28 06:12] LABS: #Basophils 0.1 thou/uL (0.0-0.2); #Eosinphils 0.2 thou/uL (0.0-0.7); #Monocytes 1.2 thou/uL (0.11-0.59); #Neutrophils 10.4 thou/uL (1.40-6.50); %Basophils 0.5 % (0.0-1.0); %Eosinophils 1.6 % (0.0-10.0); %Monocytes 7.9 % (0.0-10.0); Hemoglobin 11.8 g/dL (12.0-16.0); Mean Corpuscular HGB CONC 32.8 g/dL (32.0-36.0); Mean Corpuscular Hemoglobin 27.9 pg (27.0-31.0); Mean Corpuscular Volume 85.1 fL (78.0-98.0); Mean Platelet Volume 6.5 fL (7.4-10.4); Platelet Count 363 thou/uL (130-400); Red Blood Cell (RBC) Count 4.25 mill/uL (4.20-5.40); White Blood Cell (WBC) Count 14.9 thou/uL (4.8-10.8)
[2021-05-28 06:46] LABS: Anion Gap 12 mmol/L (10-20); BUN (Urea Nitrogen) 11 mg/dL (9.8-20.1); Calc. Creatinine Clearance 88 mL/min (70-130); Calcium 8.9 mg/dL (7.8-10.44); Carbon Dioxide 22 mmol/L (23-31); Chloride 108 mmol/L (98-107); Glucose 127 mg/dL (80-115); Sodium 138 mmol/L (136-145)
[2021-05-28] MEDS: Aztreonam 1 GM in Sodium Chloride 0.9% 100 ML IVPB SCH ×2 (10:20→21:33)
[2021-05-28] MEDS: Multivit, Therapeutic 1 TAB PO SCH (10:21)
[2021-05-28] MEDS: Aspirin Chewable 81 MG TAB PO SCH (10:21)
[2021-05-28] MEDS: HYDROcodone/Acetaminophen 5/325 mg Tablet PO PRN (10:22)
[2021-05-28] MEDS: Mirtazapine 30 MG TAB PO SCH (10:22)
[2021-05-28] MEDS: Folic Acid 1 MG TAB PO SCH ×2 (10:22→21:34)
[2021-05-28] MEDS: Gabapentin 100 MG CAP PO SCH ×3 (10:22→21:33)
[2021-05-28] MEDS: Saccharomyces boulardii 250 MG CAP PO SCH (10:24)
[2021-05-28] MEDS: Enoxaparin Sodium 40 MG/0.4 ML SYRINGE SC SCH (10:24)
[2021-05-28 17:51] LABS: Magnesium 1.8 mg/dL (1.6-2.6)
[2021-05-28] MEDS: Sodium Chloride 0.9% 1,000 ML IV SCH ×2 (18:50→21:45)
[2021-05-28] MEDS: Atorvastatin Calcium 40 MG TAB PO SCH (21:33)
[2021-05-28] MEDS: Nicotine 14 MG PATCH TD SCH (21:34)
[2021-05-28] MEDS: Ondansetron PF 4 MG/2 ML Vial IVP PRN (21:50)
[2021-05-28 22:33] LABS: SARS-CoV-2 PCR by NAA Not Detected (NotDetected)
[2021-05-29] MEDS ORDERED: Magnesium 2 GM/50 ML 2 GM in Premix Bag 1 BAG IVPB SCH (07:00)
[2021-05-29] MEDS: Aztreonam 1 GM in Sodium Chloride 0.9% 100 ML IVPB SCH ×2 (07:41→21:35)
[2021-05-29] MEDS: Enoxaparin Sodium 40 MG/0.4 ML SYRINGE SC SCH ×2 (07:42→07:45)
[2021-05-29] MEDS: Aspirin Chewable 81 MG TAB PO SCH (07:42)
[2021-05-29] MEDS: Gabapentin 100 MG CAP PO SCH ×3 (07:42→21:34)
[2021-05-29] MEDS: Folic Acid 1 MG TAB PO SCH ×2 (07:43→21:34)
[2021-05-29] MEDS: Saccharomyces boulardii 250 MG CAP PO SCH (07:43)
[2021-05-29] MEDS: Mirtazapine 30 MG TAB PO SCH (07:43)
[2021-05-29] MEDS: Multivit, Therapeutic 1 TAB PO SCH (07:43)
[2021-05-29] MEDS: HYDROcodone/Acetaminophen 5/325 mg Tablet PO PRN (14:15)
[2021-05-29] MEDS: Atorvastatin Calcium 40 MG TAB PO SCH (21:34)
[2021-05-29] MEDS: ALPRAZolam 0.25 MG TAB PO PRN (21:35)
[2021-05-29] MEDS: Sodium Chloride 0.9% 1,000 ML IV SCH (21:36)
[2021-05-30 06:54] LABS: #Basophils 0.1 thou/uL (0.0-0.2); #Eosinphils 0.4 thou/uL (0.0-0.7); #Lymphocytes 3.2 thou/uL (1.20-3.40); #Monocytes 0.9 thou/uL (0.11-0.59); #Neutrophils 9.9 thou/uL (1.40-6.50); %Basophils 0.5 % (0.0-1.0); %Eosinophils 2.7 % (0.0-10.0); %Lymphocytes 22.3 % (21.0-51.0); %Monocytes 6.3 % (0.0-10.0); %Neutrophils 68.1 % (42.0-75.0); Hemoglobin 11.9 g/dL (12.0-16.0); Mean Corpuscular HGB CONC 34.3 g/dL (32.0-36.0); Mean Corpuscular Hemoglobin 28.8 pg (27.0-31.0); Mean Platelet Volume 6.5 fL (7.4-10.4); Platelet Count 376 thou/uL (130-400); Red Blood Cell (RBC) Count 4.14 mill/uL (4.20-5.40); White Blood Cell (WBC) Count 14.6 thou/uL (4.8-10.8)
[2021-05-30 07:04] LABS: INR-International Normal Ratio 1.1; Prothrombin Time 14.3 sec (12.0-14.7)
[2021-05-30 07:12] LABS: ALT (SGPT) 66 U/L (8-55); AST (SGOT) 57 U/L (5-34); Alkaline Phosphatase 275 U/L (40-110); Anion Gap 11 mmol/L (10-20); BUN (Urea Nitrogen) 12 mg/dL (9.8-20.1); Bilirubin, Total 0.4 mg/dL (0.2-1.2); Calc. Creatinine Clearance 83 mL/min (70-130); Calcium 9.1 mg/dL (7.8-10.44); Carbon Dioxide 24 mmol/L (23-31); Chloride 104 mmol/L (98-107); Globulin 3.2 g/dL (2.4-3.5); Glucose 111 mg/dL (80-115); Potassium 4.3 mmol/L (3.5-5.1); Protein, Total 6.2 g/dL (5.8-8.1); Sodium 135 mmol/L (136-145)
[2021-05-30] MEDS: Aztreonam 1 GM in Sodium Chloride 0.9% 100 ML IVPB SCH ×2 (08:16→20:20)
[2021-05-30] MEDS ORDERED: Fentanyl 100 MCG/2 ML VIAL ONE ×2 (09:51→11:50)
[2021-05-30] MEDS ORDERED: Iothalamate Meglumine 60% 50 ML VIAL FS ONE (09:55)
[2021-05-30] MEDS ORDERED: B & O 30 MG SUPP ONE ×2 (10:28)
[2021-05-30] MEDS ORDERED: PROPOFOL 200 MG/20 ML VIAL ONE (10:46)
[2021-05-30] MEDS ORDERED: Glycopyrrolate 0.2 MG/ML 5 ML SYRINGE ONE (10:46)
[2021-05-30] MEDS ORDERED: Dexamethasone 20 MG/5 ML VIAL ONE (10:46)
[2021-05-30] MEDS ORDERED: Ondansetron PF 4 MG/2 ML Vial ONE (10:46)
[2021-05-30] MEDS ORDERED: Lidocaine 1% PF 5 ML VIAL ONE (10:46)
[2021-05-30] MEDS ORDERED: Rocuronium Bromide 10 MG/ML (10ML VIAL) ONE (10:46)
[2021-05-30] MEDS ORDERED: Ondansetron HCl/PF 4 MG/2 ML Vial IVP PRN (13:03)
[2021-05-30] MEDS ORDERED: Promethazine HCl 25 MG/ML VIAL IM PRN (13:03)
[2021-05-30] MEDS ORDERED: Promethazine HCl 25 MG/ML VIAL ONE (13:03)
[2021-05-30] MEDS ORDERED: Promethazine HCl 25 MG/ML VIAL IVPB PRN (13:03)
[2021-05-30] MEDS: Gabapentin 100 MG CAP PO SCH ×2 (17:06→20:20)
[2021-05-30] MEDS: Multivit, Therapeutic 1 TAB PO SCH (17:06)
[2021-05-30] MEDS: Folic Acid 1 MG TAB PO SCH ×2 (17:06→20:20)
[2021-05-30] MEDS: Mirtazapine 30 MG TAB PO SCH (17:26)
[2021-05-30] MEDS: Aspirin Chewable 81 MG TAB PO SCH (17:26)
[2021-05-30] MEDS: Saccharomyces boulardii 250 MG CAP PO SCH (17:27)
[2021-05-30] MEDS: HYDROcodone/Acetaminophen 5/325 mg Tablet PO PRN (18:00)
[2021-05-30 18:38] LABS: BF Color Red; BF WBC/Nonhematics Ct.-Manual 5040 /cu.mm; Body Fluid Source Bronchial Washings; Clarity Cloudy/Turbid (Clear); Tube # EDTA
[2021-05-30 18:39] LABS: BF RBC Count - Manual 45600 /cu.mm
[2021-05-30 19:43] LABS: BF Segmented Neutrophils 47 %; Cell Count Non Hematic 41 %; Eosinophils 4 %; Lymphocytes 7 %
[2021-05-30] MEDS: Atorvastatin Calcium 40 MG TAB PO SCH (20:20)
[2021-05-30] MEDS: Sodium Chloride 0.9% 1,000 ML IV SCH ×2 (22:27→22:45)
[2021-05-30] MEDS: ALPRAZolam 0.25 MG TAB PO PRN (22:31)
[2021-05-31] MEDS: HYDROcodone/Acetaminophen 5/325 mg Tablet PO PRN (05:58)
[2021-05-31] MEDS: Aztreonam 1 GM in Sodium Chloride 0.9% 100 ML IVPB SCH (09:45)
[2021-05-31] MEDS: Gabapentin 100 MG CAP PO SCH ×2 (09:46→14:57)
[2021-05-31] MEDS: Mirtazapine 30 MG TAB PO SCH (09:47)
[2021-05-31] MEDS: Multivit, Therapeutic 1 TAB PO SCH (09:47)
[2021-05-31] MEDS: Aspirin Chewable 81 MG TAB PO SCH (09:47)
[2021-05-31] MEDS: Saccharomyces boulardii 250 MG CAP PO SCH (09:47)
[2021-05-31] MEDS: Folic Acid 1 MG TAB PO SCH (09:47)
[2021-05-31] MEDS: Acetaminophen 325 MG TAB PO PRN (10:56)
[2021-05-31] MEDS ORDERED: HYDROcodone/Acetaminophen 5/325 mg Tablet PO SCH (14:45)
[2021-05-31 16:04] VITALS: BP 108/57; TEMP 98.3
[2021-06-04 13:40] LABS: Fungus Stain Final report (.)
[2021-06-04 13:40] LABS: Fungus Stain Final report (.)
== END 2021-05-31 17:52 | disposition home health service (06) | DRG 853 ==
LOC: ERS 08:40 → 2SW 14:55 → 3SE 05-24 19:34
PROVIDERS: ADMIT Internal Medicine; ATTEND Internal Medicine
PROC: 0T778DZ Dilation of Left Ureter with Intraluminal Device, Via Natural or Artificial Opening Endoscopic (ICD-10-PCS; principal; 2021-05-30)
PROC: BT1F1ZZ Fluoroscopy of Left Kidney, Ureter and Bladder using Low Osmolar Contrast (ICD-10-PCS; 2021-05-30)
PROC: 07B70ZX Excision of Thorax Lymphatic, Open Approach, Diagnostic (ICD-10-PCS; 2021-05-30)
PROC: 0B9H8ZX Drainage of Lung Lingula, Via Natural or Artificial Opening Endoscopic, Diagnostic (ICD-10-PCS; 2021-05-30)
PROC: 0B9D8ZX Drainage of Right Middle Lung Lobe, Via Natural or Artificial Opening Endoscopic, Diagnostic (ICD-10-PCS; 2021-05-30)
DX: A41.9 Sepsis, unspecified organism (principal); I63.9 Cerebral infarction, unspecified; G93.41 Metabolic encephalopathy; J98.11 Atelectasis; N13.6 Pyonephrosis; G81.91 Hemiplegia, unspecified affecting right dominant side; R47.01 Aphasia; C34.2 Malignant neoplasm of middle lobe, bronchus or lung; R65.20 Severe sepsis without septic shock; I10 Essential (primary) hypertension; F17.210 Nicotine dependence, cigarettes, uncomplicated; E78.5 Hyperlipidemia, unspecified; F32.9 Major depressive disorder, single episode, unspecified; R13.10 Dysphagia, unspecified; R59.0 Localized enlarged lymph nodes; F40.240 Claustrophobia; Z20.822 Contact with and (suspected) exposure to COVID-19; R29.810 Facial weakness; F11.10 Opioid abuse, uncomplicated; I08.1 Rheumatic disorders of both mitral and tricuspid valves; G89.4 Chronic pain syndrome; E83.42 Hypomagnesemia; E87.6 Hypokalemia; F41.9 Anxiety disorder, unspecified; E53.8 Deficiency of other specified B group vitamins; Z88.0 Allergy status to penicillin; Z79.899 Other long term (current) drug therapy; Z90.710 Acquired absence of both cervix and uterus; Z90.49 Acquired absence of other specified parts of digestive tract; Z98.890 Other specified postprocedural states; Z71.6 Tobacco abuse counseling
CPT/HCPCS: 36415; 36416; 70450; 71045; 71275; 74018; 74019; 74178; 74410; 74420; 76000; 76770; 80048; 80053; 80061; 81001; 82140; 82553; 82607; 82728; 82746; 83036; 83605; 83735; 84100; 84145; 84443; 84484; 85025; 85060; 85379; 85610; 85730; 86140; 86769; 87040; 87070; 87077; 87086; 87102; 87116; 87186; 87206; 88112; 88172; 88173; 88177; 88305; 88341; 88342; 89051; 93005; 93306; 93880; 95816; 95819; 95957; J0133; J0696; J1100; J1650; J2060; J2405; J2550; J2704; J3010; J3475; J3490; J7050; Q0162; Q9961; Q9967; U0002; U0003; U0005

== ENCOUNTER 2021-06-20 09:37 | Outpatient (CLI) | payer BC ==
[2021-06-20] MEDS ORDERED: Magnevist 469MG/ML 20 ML VIAL ONE (10:56)
== END 2021-06-20 09:38 | disposition home or self-care (01) ==
LOC: MRI 09:37
PROVIDERS: ATTEND Internal Medicine Hematology & Oncology
DX: C34.31 Malignant neoplasm of lower lobe, right bronchus or lung (principal); C79.51 Secondary malignant neoplasm of bone
CPT/HCPCS: 70553; A9579